=== PATIENT | female | born 1985 | race Caucasian/White ===

== ENCOUNTER 2017-07-18 17:58 | Emergency (ER) | payer OTHER ==
[~2017-07-18] VITALS: Ht 157.5 cm; Wt 71.2 kg
--- NOTE | ~2017-07-18 | CR181 ---
[facility]. [facility] A Service of [facility] & [facility] RADIOLOGY TEXT RESULTS PATIENT: CHULA MARQUEZ LOCATION: SED : 87 UNIT #: [id number] AGE: [address]: STEPHANIA ANGELES PA-C SEX: F ORDER DR: [id number] [address] [address] [id number] E MR#: [id number] Acc #: [id number] NAME: CHULA MARQUEZ : 1985 SEX: F STUDY DATE/TIME: 07/18/2017 19:42 UNIT: SED ROOM: STUDY DESCRIPTION: CR Lumbar Spine 2 or 3 Views Attending Physician: Stephania Angeles Pa-C Ordering Physician: Stephania Angeles Pa-C Primary Care Physician: No Primary Care Physician MEDICAL IMAGING REPORT This report is preliminary unless electronic signature is present. EXAM Lumbar spine, 07/18/2017. HISTORY 31-year-old female with low back pain status post fall 5 days ago. COMPARISON None. FINDINGS Three views of the lumbar spine demonstrate no acute fracture or subluxation. Vertebral body heights and alignment are normally maintained. Disc space and facets are within normal limits. Sacrum and SI joints appear intact. IMPRESSION Unremarkable lumbar spine. Dictated by... Rinku Barrett M.D. THIS IS AN ELECTRONICALLY VERIFIED REPORT Rinku Barrett M.D. at 07/19/2017 4:11 PM MANDI/buddy TD: 07/19/2017 09:09 JOB #: [id number] MEDICAL IMAGING REPORT Page 1 of 1
--- NOTE | ~2017-07-18 | CR219 ---
[facility]. [facility] A Service of [facility] & [facility] RADIOLOGY TEXT RESULTS PATIENT: CHULA MARQUEZ LOCATION: SED : 87 UNIT #: [id number] AGE: [address]: STEPHANIA ANGELES PA-C SEX: F ORDER DR: [id number] [address] [address] [id number] MR#: [id number] Acc #: [id number] NAME: CHULA MARQUEZ : 1985 SEX: F STUDY DATE/TIME: 07/18/2017 19:42 UNIT: SED ROOM: STUDY DESCRIPTION: CR Sacrum and Coccyx Min 2 Vie Attending Physician: Stephania Angeles Pa-C Ordering Physician: Stephania Angeles Pa-C Primary Care Physician: No Primary Care Physician MEDICAL IMAGING REPORT This report is preliminary unless electronic signature is present. EXAM Sacrum and coccyx, 07/18/2017. HISTORY 31-year-old female with sacrum and low back pain status post fall 5 days ago. COMPARISON None. FINDINGS Three views of the sacrum and coccyx demonstrate no acute fracture. SI joints intact. Visualized bony pelvis intact. IMPRESSION Unremarkable sacrum/coccyx. Dictated by... Rinku Barrett M.D. THIS IS AN ELECTRONICALLY VERIFIED REPORT Rinku Barrett M.D. at 07/19/2017 4:11 PM MANDI/buddy TD: 07/19/2017 09:11 JOB #: [id number] MEDICAL IMAGING REPORT Page 1 of 1
[2017-07-18 19:24] LABS: URINE SOURCE CLEAN CATCH
[2017-07-18 19:26] LABS: MICRO INDICATED? YES; URINE APPEARANCE CLEAR; URINE BILIRUBIN NEG (NEG); URINE BLOOD 2+ (NEG); URINE COLOR YELLOW; URINE GLUCOSE NEG (NORM); URINE KETONE NEG (NEG); URINE LEUKOCYTE ESTERASE NEG (NEG); URINE NITRATE NEG (NEG); URINE PROTEIN NEG (NEG)
[2017-07-18 19:28] LABS: URINE BACTERIA NEG (NEG); URINE SQUAMOUS EPITHELIAL CELL OCCAS /[HPF]; URINE WBC NEG /[HPF] (0-5)
== END 2017-07-18 20:45 | disposition home or self-care (01) ==
LOC: SED 17:58
PROVIDERS: Physician Assistant
DX: S39.012A Strain of muscle, fascia and tendon of lower back, initial encounter (principal); R31.9 Hematuria, unspecified; J45.909 Unspecified asthma, uncomplicated; Z98.890 Other specified postprocedural states; W01.0XXA Fall on same level from slipping, tripping and stumbling without subsequent striking against object, initial encounter
CPT/HCPCS: 72100; 72220; 81003; 84703; 96372; 99284; J1885